=== PATIENT | female | born 1985 | race Caucasian/White ===

== ENCOUNTER 2017-08-01 00:29 | Inpatient (IN) ==
[2017-08-01] MEDS ORDERED: METHYLERGONOVINE 0.2 MG/ML INJECTION IM PRN (08:50)
[2017-08-01] MEDS ORDERED: D5LR 1,000 ML IV PRN (08:50)
[2017-08-01] MEDS ORDERED: CARBOPROST 250 MCG/ML INJECTION IM PRN (08:50)
[2017-08-01] MEDS ORDERED: LIDOCAINE 1% (10mg/ml) 2mL INJ PF SDV ID PRN (08:50)
[2017-08-01] MEDS ORDERED: MAG-AL + SIM ORAL LIQUID 30ml PO PRN ×2 (08:50→16:48)
[2017-08-01] MEDS ORDERED: OXYTOCIN DRIP 30 UNIT/500 ML ML IV PRN (08:50)
[2017-08-01] MEDS ORDERED: ACETAMINOPHEN 500 MG TABLET PO PRN ×2 (08:50→16:48)
[2017-08-01] MEDS ORDERED: CALCIUM CARBONATE Chewable 500mg TABLET PO PRN ×2 (08:50→16:48)
--- OUTSIDE RECORDS SUMMARY | 2017-08-01 08:52 | External Medical Summary | Continuity of Care Document ---
:1985 Author Organization [facility] Address [address] [place], [place] [id number] Phone Care Team Providers Name Role Phone Natalie Gonzalez MD Unavailable Unavailable Allergies, Adverse Reactions, Alerts Substance Reaction Severity Status No Known Drug Allergies Unknown Active Medications Medication Instructions Dosage Effective Dates Status Comments (start - stop) aspirin 81 mg take 1 tablet by oral 81 MG - Active tablet,delayed route every day release 28 mg-800 - Active mcg tablet vitamin E 100 unit - Active capsule Vitamin D2 50,000 take 1 capsule by 32339 UNITS - Active unit capsule oral route every week Problems Condition Effective Dates (start - stop) Clinical Status Encounter for suprvsn of normal - , third trimester 34 weeks gestation of - Encounter for suprvsn of normal - , first trimester 11 weeks gestation of - Encounter for suprvsn of normal - , second trimester 15 weeks gestation of - Encounter for suprvsn of normal - , second trimester 19 weeks gestation of - Encounter for suprvsn of normal - , second trimester 24 weeks gestation of - Encounter for suprvsn of normal - , second trimester 20 weeks gestation of - Encounter for suprvsn of normal - , third trimester Encounter For Screening For - Streptococcus B 36 weeks gestation of - Encounter for suprvsn of normal - , third trimester 28 weeks gestation of - Encounter for suprvsn of normal - , third trimester 31 weeks gestation of - Encounter for suprvsn of normal - , third trimester 30 weeks gestation of - Procedures Procedure Date OB Visit No Charge Results Test Name Date and Time Measure Units Reference Range Abnormal Flag Comments Unknown Advance Directives Directive Yes / No Effective Date File Name Unknown Encounters Encounter Practice Location Reason(s) Diagnoses Date Provider Care Team Description For Visit Members Kendrick Goins Encounter for Dec-1 [facility]wat Referring In Womens suprvsn of normal 2-201 Jake. 700 Provider: Health [place], , third 7 Medical Jake [address] [facility] R, 1522, r For [place], Screening For 120, Medical [place], Streptococcus B36 [facility] , weeks gestation BRENT [facility] 120, [place] of [id number] [place], tel: , [place]. [place], tel: [phone]. [id number] tel:[phone] Kendrick Goins Encounter for Nov-2 [facility] In Womens suprvsn of normal 8-201 Jake. 700 Health PA, , third 7 Medical PO [address] [email or web address] weeks Center 1522, gestation of [place], 120, [place], [place], [id number], [place], [place] [id number] tel: , [place]. tel: [phone] Kendrick Goins Encounter for Nov-0 [place] In Womens suprvsn of normal 7-201 Jake. 700 Health PA, , third 7 Medical PO Box [email or web address] weeks Center 1522, gestation of [place], 120, [place], [place], [id number], [place] [id number] tel: , [place]. tel: [phone] Kendrick Goins Encounter for Nov-0 [place] In Womens suprvsn of normal 1-201 Jake. 700 Health PA, , third 7 Medical PO Box [email or web address] weeks Center 1522, gestation of [place]em [place], 120, BRENT, [place], [id number], [place], [place] tel: , [place]. tel: [phone] Kendrick Goins Encounter for Oct-1 [place] In Womens suprvsn of normal 9-201 Jake. 700 Health PA, , third 7 Medical PO Box [email or web address] weeks Center 1522, gestation of [place], 120, [place], [place], [id number], [place] [id number] tel: , [place]. tel: [phone] Associates [place] Encounter for Sep-2 [place] In Womens suprvsn of normal 1-201 Jake. 700 Health PA, , second 7 Medical PO Box weeks Center 1522, gestation of [place], 120, [place], [place], [id number], [place] [id number] tel:+ , [place]. tel: [phone] Kendrick Goins Encounter for Aug-2 [place] In Womens suprvsn of normal 4-201 Jake. 700 Health PA, , second 7 Medical PO Box [email or web address] weeks Center 1522, gestation of [place], 120, [place], [place], [id number], [place], [place] [id number] tel: , . tel: [phone] Kendrick Goins Encounter for Aug-2 [place] In Womens Ultrasound suprvsn of normal 4-201 Jake. 700 Health PA, , second 7 Medical PO Box [email or web address] weeks Center 1522, gestation of [place], 120, [place], [place], [id number], [place], [place] [id number] tel: , . tel: [phone] Kendrick Goins Encounter for Isreal-2 [place] In Womens suprvsn of normal 7-201 Jake. 700 Health PA, , second 7 Medical PO Box [email or web address] weeks Center 1522, gestation of [place], 120, [place], [place], [id number], [place], [place] [id number] tel: , . tel: [phone] Kendrick Goins Encounter for Jose-2 [place] In Womens suprvsn of normal 9-201 Jake. 700 Health PA, , first 7 Medical PO Box [email or web address] weeks Center 1522, gestation of [place]u, 120, [place], [place], [id number], [place], [place] [id number] tel:3 , [place]. [id number] tel: [phone] Family History Family Member Diagnosis Age At Onset Maternal Grandmother Breast Cancer No family history of Venous Thrombosis No family history of Pulmonary Embolism Immunizations Vaccine Date Status Comments Tdap completed Source: New Immunization Record Influenza, injectable, completed Source: Other Provider quadrivalent, preservative free, 3 yrs or older Payers Payer name Insurance type Covered green party ID Authorization(s) [facility] [place] [id number] [facility] CI [id number] Social History Type Description Quantity Date Captured Alcohol Use Details No Caffeine Use Details Unknown Tobacco Use Status Unknown Smoking Status Never smoker Vital Signs Date / Height Weight BMI Pulse Blood Temperature Respiratory Body Head BMI Time: Rate Pressure Rate Surface Circumference percentile Area 158.80 33.1 lbs 9 mm[Hg] 11:38 kg/m AM eter (2) Chief Complaint And Reason For Visit Unknown Chief Complaint And Reason For Visit Reason For Referral Reason For Referral Unknown Plan Of Care Date Type Action Status Appointment Melissa Walsh BOOKED Appointment Melissa Walsh BOOKED Future Order: Radiology Order Complete OB Ultrasound > 14 Ordered Weeks ([id number]) Date Type Problem Goal Intervention Status Start Date Unknown. History Of Present Illness Encounter Date Complaint History Of Present Illness This patient has no known history of present illness Functional Status Encounter Date Functional Assessment Cognitive Assessment Unknown Medications Administered Medication Instructions Dosage Effective Dates (start - stop) Status Comments Drug Treatment Unknown Instructions Date Instruction Additional Information HIV and other routine tests risk factors identified by history anticipated course of care nutrition and weight gain counseling, special diet toxoplasmosis precautions (cats / raw meat) sexual activity exercise indications for ultrasound influenza vaccine environmental / work hazards travel use of any medications (including supplements, vitamins, herbs, OTC drugs) domestic violence seat belt use childbirth classes / hospital facilities hospital registration genetic testing new ob handbook Zika virus assessment & precautions
--- OUTSIDE RECORDS SUMMARY | 2017-08-01 08:52 | External Medical Summary | Continuity of Care Document ---
:1985 Author Organization [facility] Address [address] [place], [place] [id number] Phone Care Team Providers Name Role Phone Natalie Gonzalez MD Unavailable Unavailable Allergies, Adverse Reactions, Alerts Substance Reaction Severity Status No Known Drug Allergies Unknown Active Medications Medication Instructions Dosage Effective Dates Status Comments (start - stop) 28 mg-800 - Active mcg tablet vitamin E 100 unit - Active capsule Vitamin D2 50,000 take 1 capsule by 32033 UNITS - Active unit capsule oral route [...] Description For Visit Members Kendrick Goins Encounter [facility] In Womens for Jake. 700 Health PA, of normal Medical [address], , Center [place], third Saleem 120, [id number], [email or web address] [place], [place] weeks [place], tel:[phone] gestation [id number], [address] of [place]. tel:[phone] Kendrick Goins Encounter [facility] In Womens for Jake. 700 Health PA, of normal Medical [address], , Center [place], third Saleem 120, [id number], [email or web address] [place], [place] weeks [place], tel:[phone] gestation [id number], [address] of [place]. tel:[phone] Kendrick Goins Encounter [facility] In Womens for Jake. 700 Health PA, of normal Medical [address], , Center [place], third [place] 120, [id number], [email or web address] [place], [place] weeks [place], tel:[phone] gestation [id number], [address] of [place]. tel:[phone] Kendrick Goins Encounter [facility] In Womens for Jake. 700 Health PA, of normal Medical [address], , Center [place], second [place] 120, [id number], [email or web address] [place], [place] weeks [place], tel:[phone] gestation [id number], [address] of [place]. tel:[phone] Kendrick Goins Encounter [place] In [facility] for [facility] [place]. 700 Health PA, of normal Medical [address], , Center [place], second [place] 120, [id number], [email or web address] [place], [place] weeks [place], tel:[phone] gestation [id number], [address] of [place]. tel:[phone] Kendrick Goins Encounter [facility] In Womens Ultrasound for Jake. 700 Health PA, of normal Medical [address], , Center [place], second [place] 120, [id number], [email or web address] [place], [place] weeks [place], tel:[phone] gestation [id number], [address] of [place]. tel:[phone] Kendrick Goins Encounter [facility] In Womens for Jake. 700 Health PA, of normal Medical [address], , Center [place], second [place] 120, [id number], [email or web address] [place], [place] weeks [place], tel:[phone] gestation [id number], [address] of [place]. tel:[phone] Kendrick Goins Encounter [facility] In Womens for Jake. [address] [place] [address] PA, of normal Medical [address], , Center [place], first [place]em 120, [id number], [email or web address] [place], [place] weeks [place], tel:[phone] gestation [id number], [address] of [place]. tel:[phone] Family History Family Member Diagnosis Age At Onset Maternal Grandmother Breast Cancer No family history of Venous Thrombosis No family history of Pulmonary Embolism Immunizations Vaccine Date Status Comments Unknown Payers Payer name Insurance type Covered alliance party ID Authorization(s) [facility] [id number] Social History Type Description Quantity Date Captured Alcohol Use Details No Caffeine Use Details Unknown Tobacco Use Status Unknown Smoking Status Never smoker Vital Signs Date / Height Weight BMI Pulse Blood Temperature Respiratory Body Head BMI Time: Rate Pressure Rate Surface Circumference percentile Area 158.80 33.1 lbs 9 mm[Hg] 9:21 kg/m AM eter (2) Chief Complaint And Reason For Visit Unknown Chief Complaint And Reason For Visit Reason For Referral Reason For Referral Unknown Plan Of Care Date Type Action Status Appointment Melissa Walsh BOOKED Future Order: Radiology Order Complete OB Ultrasound > 14 Ordered Weeks ([id number]) Date Type Problem Goal Intervention Status Start [...]
--- OUTSIDE RECORDS SUMMARY | 2017-08-01 08:52 | External Medical Summary | Continuity of Care Document ---
:1987 Author Organization [facility] Address [address] [place], [place] [id number] Phone Care Team Providers Name Role Phone Natalie Gonzalez MD Unavailable Unavailable Allergies, Adverse Reactions, Alerts Substance Reaction Severity Status No Known Drug Allergies Unknown Active Medications Medication Instructions Dosage Effective Dates Status Comments (start - stop) 28 mg-800 - Active mcg tablet vitamin E 100 unit - Active capsule Vitamin D2 50,000 take 1 capsule by 91797 UNITS - Active unit capsule oral route [...] weeks gestation of - Procedures Procedure Date Unknown Results Test Name Date and Time Measure [...] Center [place], third [place] 120, [id number], [email or web address] [place], [place] weeks [place], tel:[phone] gestation [id number], [address] of [place]. tel:[phone] Kendrick Goins [facility] In Womens -2016 Jake. 700 Health PA, Medical [address], [place], [place] 120, [id number], [place], [place], tel:[phone] [id number], [address] [place]. tel:[phone] Kendrick Goins Encounter [facility] In Womens for Jake. 700 Health PA, of normal Medical [address], , [place], third [place] 120, [id number], [email or web address] [place], [place] weeks [place], tel:[phone] gestation [id number], [address] of [place]. tel:[phone] Kendrick Goins Encounter [facility] In Womens for Jake. 700 Health PA, of normal Medical [address], , Center [place], third [place] 120, [id number], [place], [place] weeks [place], tel:[phone] gestation [id number], [address] of [place]. tel:[phone] Kendrick Goins Encounter [facility] In Womens for Jake. 700 Health PA, of normal Medical [address], , Center [place], second [place] 120, [id number], [email or web address] [place], [place] weeks [place], tel:[phone] gestation [id number], [address] of [place]. tel:[phone] Kendrick Goins Encounter [facility] In Womens for [facility] Jake. 700 Health PA, of normal Medical [address], , Center [place], second [place] 120, [id number], [email or web address] [place], [place] weeks [place], tel:[phone] gestation [id number], [address] of [place]. tel:[phone] Kendrick Goins Encounter [facility] In Womens Ultrasound for Jake. 700 Health PA, of normal Medical [address], , Center [place], second [place] 120, [id number], [email or web address] [place], [place] weeks [place], tel:[phone] gestation [id number], [address] of [place]. tel:[phone] Kendrick Goins Encounter [facility] In Womens for Jake. 700 Health PA, of normal Medical [address], , Center [place], second [place] 120, [id number], [email or web address] [place], [place] weeks [place], tel:[phone] gestation [id number], [address] of [place]. tel:[phone] Kendrick Goins Encounter [facility] In Womens for Jake. 700 Health PA, of normal Medical [address], , Center [place], first [place] 120, [id number], [email or web address] [place], [place] weeks [place], tel:[phone] gestation [id number], [address] of [place]. tel:[phone] Family History Family Member Diagnosis Age At Onset Maternal Grandmother Breast Cancer No family history of Venous Thrombosis No family history of Pulmonary Embolism Immunizations Vaccine Date Status Comments Unknown Payers Payer name Insurance type Covered alliance party ID Authorization(s) [facility] CI [id number] Social History Type Description Quantity Date Captured Unknown Vital Signs Date / Height Weight BMI Pulse Blood Temperature Respiratory Body Head BMI Time: Rate Pressure Rate Surface Circumference percentile Area Unknown Chief Complaint And Reason For Visit Unknown Chief Complaint And Reason For Visit Reason For Referral Reason For Referral Unknown Plan Of Care Date Type Action Status Appointment Melissa Walsh BOOKED Future Order: Radiology Order Complete OB Ultrasound > 14 Ordered Weeks ([id number]) Date Type Problem Goal Intervention Status Start [...]
--- OUTSIDE RECORDS SUMMARY | 2017-08-01 08:52 | External Medical Summary | Continuity of Care Document ---
:1987 Author Organization [facility] Address [address] [place], [place] [id number] Phone Care Team Providers Name Role Phone Natalie Gonzalez MD Unavailable Unavailable Allergies, Adverse Reactions, Alerts Substance Reaction Severity Status Substance Type Unknown Medications Medication Instructions Dosage Effective Dates Status Comments (start - stop) 28 mg-800 - Active mcg tablet vitamin E 100 unit - Active capsule Vitamin D2 50,000 take 1 capsule by 59942 UNITS - Active unit capsule oral route every week Problems Condition Effective Dates (start - stop) Clinical Status Encounter for suprvsn of normal - , second trimester 15 weeks gestation of - Encounter for suprvsn of normal - , first trimester 11 weeks gestation of - Procedures Procedure Date OB Visit No Charge Results Test Name Date and Time Measure Units Reference Range Abnormal Flag Comments Unknown Advance Directives Directive Yes / No Effective Date File Name Unknown Encounters Encounter Practice Location Reason(s) Diagnoses Date Provider Care Team Description For Visit Members Kendrick In [place] Encounter [facility] for Jake. 700 PA, PO Box of normal Medical 152, , Center [place], second [place]em 120, [id number], [place], tel:[phone] weeks [place], 6790 gestation of [id number], [place]. tel:[phone] Kendrick Goins Encounter [facility] for vs Jake. 700 PA, PO Box of normal Medical 1522, , Center [place], first [place] 120, [id number], [place] [email or web address] [place], tel:[phone] weeks BRENT, 6790 gestation of [id number], [place]. tel:[phone] Family History Family Member Diagnosis Age At Onset Maternal Grandmother Breast Cancer No family history of Venous Thrombosis No family history of Pulmonary Embolism Immunizations Vaccine Date Status Comments Unknown Payers Payer name Insurance type Covered constitution party ID Authorization(s) [facility] [id number] Social History Type Description Quantity Date Captured Alcohol Use Details No Caffeine Use Details Unknown Tobacco Use Status Unknown Smoking Status Never smoker Vital Signs Date / Height Weight BMI Pulse Blood Temperature Respiratory Body Head BMI Time: Rate Pressure Rate Surface Circumference percentile Area 139.80 29.2 110/ lbs 1 mm[Hg] 10:22 kg/m AM eter (2) Chief Complaint And Reason For Visit Unknown Chief Complaint And Reason For Visit Reason For Referral Reason For Referral Unknown Plan Of Care Date Type Action Status Appointment Melissa Walsh BOOKED Appointment Melissa Walsh BOOKED Date Type Problem Goal Intervention Status Start [...]
--- OUTSIDE RECORDS SUMMARY | 2017-08-01 08:52 | External Medical Summary | Continuity of Care Document ---
:1987 Author Organization [facility] Address [address] [place], [place] [id number] Phone Care Team Providers Name Role Phone Natalie Gonzalez MD Unavailable Unavailable Allergies, Adverse Reactions, Alerts Substance Reaction Severity Status No Known Drug Allergies Unknown Active Medications Medication Instructions Dosage Effective Dates Status Comments (start - stop) 28 mg-800 - Active mcg tablet vitamin E 100 unit - Active capsule Vitamin D2 50,000 take 1 capsule by 64895 UNITS - Active unit capsule oral route [...] Procedures Procedure Date OB Visit No Charge - [facility] Hemoglobin count, colorimetric Hematocrit blood count Glucose test Venpnctr fngr/heel/ear stick routne Results Test Name Date and Time Measure Units Reference Range Abnormal Flag Comments Panel Description: Glucose [Mass/volume] in Serum or Plasma --1 hour post 50 g glucose PO GLUCOSE, GESTATIONAL 86 mg/dL <140 N Test performed at [facility] SCREEN (50G)-140 10:22:00 DIAGNOSTICS [id number] [place] [id number]: YANNI GANNON DO,MPH Panel Description: HEMOGLOBIN + HEMATOCRIT HEMOGLOBIN 10:22:00 10.7 g/dL 11.7-15.5 L HEMATOCRIT 10:22:00 31.4 % 35.0-45.0 L REPORT COMMENT:FASTING :NOTest performed at [facility] [id number] [place] [id number]: YANNI GANNON DO,MPH Advance Directives Directive Yes / No Effective Date File Name Unknown Encounters Encounter Practice Location Reason(s) Diagnoses Date Provider Care Team Description For Visit Members Kendrick Goins Encounter [facility] for Jake. [employer] PA, of normal Medical [address], , [place], third [place]em 120, [id number], [email or web address] [place], [place] weeks [place], tel:[phone] gestation [id number], [address] of [place]. tel:[phone] Kendrick Goins Encounter [facility] In Womens for Jake. [employer] PA, of normal Medical [address], , Center [place], third [place] 120, [id number], [email or web address] [place], [place] weeks [place], tel:[phone] gestation [id number], [address] of [place]. tel:[phone] Kendrick Goins Encounter [facility] In Womens for [facility] Jake. [facility] PA, of normal Medical [address], , Center [place], third [place] 120, [id number], [email or web address] [place], [place] weeks [place], tel:[phone] gestation [id number], [address] of [place]. tel:[phone] Kendrick Goins Encounter Mar- [facility] In Womens for Jake. 700 Health PA, of normal Medical [address], , Center [place], second [place] 120, [id number], [email or web address] [place], [place] weeks [place], tel:[phone] gestation [id number], [address] of [place]. tel:[phone] Kendrick Goins Encounter [facility] In Womens for Jake. 700 Health PA, of normal Medical [address], , Center [place], second [place] 120, [id number], [email or web address] [place], [place] weeks [place], tel:[phone] gestation [id number], [address] of [place]. tel:[phone] Kendrick Goins Encounter [facility] In Womens Ultrasound for Jake. 700 Health PA, of normal Medical [address], , Center [place], second [place] 120, [id number], [email or web address] [place], [place] weeks [place], tel:[phone] gestation [id number], [address] of [place]. tel:[phone] Kendrick Goins Encounter [facility] In Womens for Jake. 700 Health PA, of normal Medical [address], , Center [place], second [place] 120, [id number], [email or web address] [place], [place] weeks [place], tel:[phone] gestation [id number], [address] of [place]. tel:[phone] Kendrick Goins Encounter [facility] In Womens for Jake. 700 Health PA, of normal Medical [address], , Center [place], first [place] 120, [id number], [email or web address] [place], [place] weeks [place], tel:[phone] gestation [id number], [address] of [place]. tel:[phone] Family History Family Member Diagnosis Age At Onset Maternal Grandmother Breast Cancer No family history of Venous Thrombosis No family history of Pulmonary Embolism Immunizations Vaccine Date Status Comments Unknown Payers Payer name Insurance type Covered green party ID Authorization(s) [facility] CI [id number] Social History Type Description Quantity Date Captured Alcohol Use Details No Caffeine Use Details Unknown Tobacco Use Status Unknown Smoking Status Never smoker Vital Signs Date / Height Weight BMI Pulse Blood Temperature Respiratory Body Head BMI Time: Rate Pressure Rate Surface Circumference percentile Area 156.70 32.7 100/62 -2017 lbs 5 mm[Hg] 9:29 kg/m AM eter (2) Chief Complaint And Reason For Visit Unknown Chief Complaint And Reason For Visit Reason For Referral Reason For Referral Unknown Plan Of Care Date Type Action Status Appointment Melissa Walsh BOOKED Future Order: Radiology Order Complete OB Ultrasound > 14 Ordered Weeks ([id number]) Date Type Problem Goal Intervention Status Start [...]
--- OUTSIDE RECORDS SUMMARY | 2017-08-01 08:52 | External Medical Summary | Continuity of Care Document ---
:1985 Author Organization [facility] Address [address] [place], [place] [id number] Phone Care Team Providers Name Role Phone Natalie Gonzalez MD Unavailable Unavailable Allergies, Adverse Reactions, Alerts Substance Reaction Severity Status Substance Type Unknown Medications Medication Instructions Dosage Effective Dates Status Comments (start - stop) 28 mg-800 - Active mcg tablet vitamin E 100 unit - Active capsule Vitamin D2 50,000 take 1 capsule by 12963 UNITS - Active unit capsule oral route every week Problems Condition Effective Dates (start - stop) Clinical Status Encounter for suprvsn of normal - , first trimester 11 weeks gestation of - Procedures Procedure Date Initial OB Visit No Charge - CLIENT SERVICE CONSULTANT Infct antign, chlamydia trac, ampl Neisseria Gonorrhoeae, Amplification OB Panel With An HIV Urine Culture Venpnctr fngr/heel/ear stick routne Results Test Name Date and Time Measure Units Reference Range Abnormal Flag Comments Panel Description: CHLAMYDIA/N. GONORRHOEAE RNA, TMA CHLAMYDIA NOT DETECTED NOT DETECTED N TRACHOMATIS RNA, 16:23:00 TMA NEISSERIA NOT DETECTED NOT DETECTED N GONORRHOEAE RNA, 16:23:00 TMA [id number] SEE NOTE This test was 16:23:00 performed using the APTIMA COMBO2 Assay([employer] The analytical performance characteristics of this assay, when used to test SurePath specimens havebeen determined by [employer]. REPORT COMMENT:FASTING:UNKNO WNTest performed at [facility] [place] [id number] [place] [address]Sjmktpoz: YANNI GANNON DO,MPH Panel Description: OBSTETRIC PANEL WHITE BLOOD CELL 6.8 Thousand/uL 3.8-10.8 N COUNT 16:28:00 RED BLOOD CELL 3.87 Million/uL 3.80-5.10 N COUNT 16:28:00 HEMOGLOBIN 12.5 g/dL 11.7-15.5 N 16:28:00 HEMATOCRIT 36.9 % 35.0-45.0 N 16:28:00 MCV 95.3 fL 80.0-100.0 N 16:28:00 MCH 32.3 pg 27.0-33.0 N 16:28:00 MCHC 33.9 g/dL 32.0-36.0 N 16:28:00 RDW 12.8 % 11.0-15.0 N 16:28:00 PLATELET COUNT 197 Thousand/uL 140-400 N 16:28:00 MPV 10.7 fL 7.5-12.5 N 16:28:00 ABSOLUTE 4685 cells/uL 3064-3401 N NEUTROPHILS 16:28:00 ABSOLUTE 1707 cells/uL 850-3900 N LYMPHOCYTES 16:28:00 ABSOLUTE 367 cells/uL 200-950 N MONOCYTES 16:28:00 ABSOLUTE 20 cells/uL 15-500 N EOSINOPHILS 16:28:00 ABSOLUTE 20 cells/uL 0-200 N BASOPHILS 16:28:00 NEUTROPHILS 68.9 % N 16:28:00 LYMPHOCYTES 25.1 % N 16:28:00 MONOCYTES 5.4 % N 16:28:00 EOSINOPHILS 0.3 % N 16:28:00 BASOPHILS 0.3 % N 16:28:00 ANTIBODY SCREEN, NO ANTIBODIES N RBC W/REFL ID, 16:28:00 DETECTED Reference range TITER AND AG No antibodies detected This assay is a screening test for the detection of red blood cell antibodies. The test is not to be used for pretransfusion screening or for the medical management of an alloimmunized . ABO GROUP A 16:28:00 RH TYPE RH(D) 16:28:00 POSITIVE RPR (DX) W/REFL NON-REACTIVE NON-REACTIV N TITER AND 16:28:00 E CONFIRMATORY TESTING HEPATITIS B NON-REACTIVE NON-REACTIV N SURFACE ANTIGEN 16:28:00 E RUBELLA ANTIBODY 12.50 index N Index (IGG) 16:28:00 Interpretation ----- <0.90 Not consistent with Immunity 0.90-0.99 Equivocal > or=1.00 Consistent with Immunity The presence of rubella IgG antibody suggests immunization or past or current infection withrubella virus.Test performed at [facility] [place] [id number] [facility] BankBRON[facility]ITAL[facility] [place] [address]Htilypa r: YANNI GANNON DO,MPH Panel Description: HIV 1/2 ANTIGEN/ANTIBODY,FOURTH GENERATION W/RFL HIV NON-REACTIVE NON-REACTIVE N HIV-1 antigen and HIV-1/HIV- 2 antibodies were AG/AB, 16:28:00 notdetected. There is no laboratory evidence of 4TH GEN HIVinfection. PLEASE NOTE: This information has been disclosed toyou from records whose confidentiality may beprotected by state law. If your state requires suchprotection, then the state law prohibits you frommaking any further disclosure of the informationwithout the specific written consent of the personto whom it pertains, or as otherwise permitted by law.A general authorization for the release of medical orother information is NOT sufficient for this purpose. For additional information please refer tohttp://education.[employer]/faq/XNK626(This link is being provided for informational/educational purposes only.) The performance of this assay has not been clinicallyvalidated in patients less than 2 years old. REPORT COMMENT:FASTING:NOTest performed at [facility] [id number] [facility] [place] [address]Itzxfrwd: YANNI GANNON DO,MPH Panel Description: Bacteria identified in Urine by Culture CULTURE, URINE, 16:30:00 SEE NOTE CULTURE, URINE, ROUTINE ROUTINE MICRO NUMBER: [id number] TEST STATUS: FINAL SPECIMEN SOURCE: URINE, CLEAN CATCH SPECIMEN QUALITY: ADEQUATE RESULT: No GrowthREPORT COMMENT:RFASTING:UNKNOWNTest performed at [facility] [place] [id number] [place] [address]Fkcnkohi: YANNI GANNON DO,MPH Advance Directives Directive Yes / No Effective Date File Name Unknown Encounters Encounter Practice Location Reason(s) Diagnoses Date Provider Care Team Description For Visit Members [facility] Encounter [facility] for suprvs Jake. 700 [place], [address] of normal Medical 1522, , Center [place], first [place] 120, [id number], [place] [email or web address] [place], tel:[phone] weeks [place], 6790 gestation of [id number], [place]. tel:[phone] Family History Family Member Diagnosis Age At Onset Maternal Grandmother Breast Cancer No family history of Venous Thrombosis No family history of Pulmonary Embolism Immunizations Vaccine Date Status Comments Unknown Payers Payer name Insurance type Covered democrat ID Authorization(s) [facility] CI [id number] Social History Type Description Quantity Date Captured Alcohol Use Details No Caffeine Use Details Unknown Tobacco Use Status Never smoked tobacco Smoking Status Never smoker Non-Smoking Tobacco Use : No Details Available : No Details Available Details Vital Signs Date / Height Weight BMI Pulse Blood Temperature Respiratory Body Head BMI Time: Rate Pressure Rate Surface Circumference percentile Area 138.00 28.8 lbs 4 mm[Hg] 3:36 kg/m PM eter (2) Chief Complaint And Reason For Visit Unknown Chief Complaint And Reason For Visit Reason For Referral Reason For Referral Unknown Plan Of Care Date Type Action Status Appointment Melissa Walsh BOOKED Future Order: Lab Order Pap Smear With HPV Reflex If ASCUS Ordered ([id number]) Date Type Problem Goal Intervention Status Start [...]
--- OUTSIDE RECORDS SUMMARY | 2017-08-01 08:53 | External Medical Summary | Continuity of Care Document ---
:1985 Author Organization [email or web address] Address [address] [place], [place] [address] Phone Care Team Providers Name Role Phone Natalie Gonzalez MD Unavailable Unavailable Allergies, Adverse Reactions, Alerts Substance Reaction Severity Status No Known Drug Allergies Unknown Active Medications Medication Instructions Dosage Effective Dates Status Comments (start - stop) 28 mg-800 - Active mcg tablet vitamin E 100 unit - Active capsule Vitamin D2 50,000 [place] 1 [place] 8[address]22 UNITS - Active unit capsule oral route every week Problems Condition Effective Dates (start - stop) Clinical Status Encounter for suprvsn of normal - , first trimester 11 weeks gestation of - Matern care for oth or susp poor fetl - grth, third tri, unsp 37 weeks gestation of - Encounter for suprvsn [...] suprvsn of normal - , third trimester 37 weeks gestation of - Encounter for suprvsn of normal - , third trimester Encounter For Screening For - Streptococcus B 36 weeks gestation of - Encounter for suprvsn of normal - , third trimester 28 weeks gestation of - Encounter for suprvsn of normal - , third trimester 31 weeks gestation of - Encounter for suprvsn of normal - , third trimester 38 weeks gestation of - Encounter for suprvsn [...] For Visit Members Kendrick Goins Encounter for Dec-2 [place] In Womens suprvsn of normal 8-201 [place]. 700 Kemar LEE, , third 7 Medical [address] [email or web address] weeks Center 1522, gestation of [place], 120, [place], [place], [id number], [place] [id number] tel:[phone] , [place]. tel: [phone] Kendrick Goins Encounter for Dec-2 [place] In Womens suprvsn of normal 1-201 [place]. 700 Kemar LEE, , third 7 Medical PO Box [email or web address] weeks Center 1522, gestation of [place] Cantu, 120, [place], [place], [id number], [place], [place] [id number] tel:+ , [place]. tel: [phone] Kendrick Goins Matern care for Dec-2 [place] In Womens Ultrasound oth or susp poor 1-201 [place]. 700 Kemar LEE, fetl grth, third 7 Medical PO Box tri, [email or web address] weeks Center 1522, gestation of [place]u, 120, [place], [place], [id number], [place], [place] [id number] tel:[phone] , [place]. tel:[phone] Kendrick Goins Encounter for Dec-1 Sarwat Referring In Womens suprvsn of normal 2-201 [place]. 700 Provider: Kemar LEE, , third 7 Medical Jake PO Box trimesterEncounte Center Sarwat R, 1522, r For Saleem Cantu, Screening For 120, Medical [place], Streptococcus B36 Goins, [place] , weeks gestation Saleem [place] 120, [place] of [id number] [place], tel: , [place]. [place], tel: [phone]. [id number] tel:[phone] Kendrick Goins Dec-0 [place] In Womens 7-201 Jake. 700 Health [place], 7 Medical PO Box Center 1522, [place], 120, [place], [place], [id number], [place], [place] [id number] tel: , [place]. tel: [phone] Kendrick Goins Encounter for Nov-2 [place] In Womens suprvsn of normal 8-201 Jake. 700 Health [place], , third 7 Medical PO Box [email or web address] weeks Center 1522, gestation of Saleem Cantu, 120, [place], [place], [id number], [place], [place] [id number] tel: , [place]. tel: [phone] Kendrick Goins Encounter for Nov-0 [place] In Womens suprvsn of normal 7-201 Jake. 700 Health [place], , third 7 Medical PO Box [email or web address] weeks Center 1522, gestation of Saleem Cantu, 120, [place], [place], [id number], [place], [place] [id number] tel: , [place]. tel: [phone] Kendrick Goins Encounter for Nov-0 [place] In Womens suprvsn of normal 1-201 Jake. 700 Health [place], , third 7 Medical PO Box [email or web address] weeks Center 1522, gestation of Saleem Cantu, 120, [place], [place], [id number], [place] [id number] tel: , [place]. tel: [phone] Kendrick Goins Encounter for Oct-1 [place] In Womens suprvsn of normal 9-201 Jake. 700 Health [place], , third 7 Medical PO Box [email or web address] weeks Center 1522, gestation of [place]em Cantu, 120, [place], [place], [id number], [place], [place] [id number] tel: , . tel: [phone] Kendrick Goins Encounter for Sep-2 [place] In Womens suprvsn of normal 1-201 Jake. 700 Health [place], , second 7 Medical PO Box [email or web address] weeks Center 1522, gestation of [place]em Cantu, 120, [place], [place], [id number], [place], [place] [id number] tel: , [place]. tel: [phone] Kendrick Goins Encounter for Aug-2 [place] In Womens suprvsn of normal 4-201 Jake. 700 Health [place], , second 7 Medical PO Box [email or web address] weeks Center 1522, gestation of Saleem Cantu, 120, [place], [place], [id number], [place], [place] [id number] tel: , . tel: [phone] Kendrick Goins Encounter for Aug-2 [place] In Womens Ultrasound suprvsn of normal 4-201 Jake. 700 Health [place], , second 7 Medical PO Box [email or web address] weeks Center 1522, gestation of [place]em Cantu, 120, [place], [place], , [place], [place] [id number] tel: , . tel: [phone] Kendrick Goins Encounter for Isreal-2 [place] In Womens suprvsn of normal 7-201 Jake. 700 Health [place], , second 7 Medical PO Box [email or web address] weeks Center 1522, gestation of [place]em Cantu, 120, [place], [place], , [place], [place] [id number] tel: , . tel: [phone] Kendrick Goins Encounter for Jose-2 [place] In Womens suprvsn of normal 9-201 Jake. 700 Health [place], , first 7 Medical PO Box [email or web address] weeks Center 1522, gestation of [place]em Cantu, 120, [place], [place], [id number], [place], [place] [id number] tel: , . tel: [phone] Family History Family Member Diagnosis Age At Onset Maternal Grandmother Breast Cancer No family history of Venous Thrombosis No family history of Pulmonary Embolism Immunizations Vaccine Date Status Comments Tdap completed Source: New Immunization Record Influenza, injectable, completed Source: Other Provider quadrivalent, preservative free, 3 yrs or older Payers Payer name Insurance type Covered democrat ID Authorization(s) [facility] CI [id number] [facility] CI [id number] Social History Type Description Quantity Date Captured Unknown Vital Signs Date / Height Weight BMI Pulse Blood Temperature Respiratory Body Head BMI Time: Rate Pressure Rate Surface Circumference percentile Area Unknown Chief Complaint And Reason For Visit Unknown Chief Complaint And Reason For Visit Reason For Referral Reason For Referral Unknown Plan Of Care Date Type Action Status Future Order: Radiology Order Ultrasound OB Follow-up ([id number]) Ordered Future Order: Radiology Order Complete OB Ultrasound > 14 Ordered Weeks ([id number]) Date Type Problem Goal Intervention Status Start [...]
--- OUTSIDE RECORDS SUMMARY | 2017-08-01 08:53 | External Medical Summary | Continuity of Care Document ---
:1987 Author Organization [facility] Address [address] [place], [place] [id number] Phone Care Team Providers Name Role Phone Natalie Gonzalez MD Unavailable Unavailable Allergies, Adverse Reactions, Alerts Substance Reaction Severity Status Substance Type Unknown Medications Medication Instructions Dosage Effective Dates Status Comments (start - stop) 28 mg-800 - Active mcg tablet vitamin E 100 unit - Active capsule Vitamin D2 50,000 take 1 [place] 44401 UNITS - Active unit capsule oral route every week Problems Condition Effective Dates (start - stop) Clinical Status Encounter for suprvsn of normal - , first trimester 11 weeks gestation of - Encounter for suprvsn of normal - , second trimester 15 weeks gestation of - Procedures Procedure Date Unknown Results Test Name Date and Time Measure Units Reference Range Abnormal Flag Comments Unknown Advance Directives Directive Yes / No Effective Date File Name Unknown Encounters Encounter Practice Location Reason(s) Diagnoses Date Provider Care Team Description For Visit Members [facility] Encounter [facility] for suprvsn -2016 Jake. 700 [place], PO Box of normal Medical 1522, , Center [place], second [place] 120, [id number], [place] [id number] [place], tel:[phone] weeks [place], 6790 gestation of [id number], [place]. tel:[phone] [facility] -2016 700 [place], PO Box Medical 1522, Center [place], [place] 120, [id number], [place], tel:[phone] [place], 6790 [id number], [place]. tel:[phone] [facility] Encounter [facility] for vs -2016 Jake. 700 [place], PO Box of normal Medical 1522, , Center [place], first [place] 120, [id number], [place] [email or web address] [place], tel:[phone] weeks [place], 6790 gestation of [id number], [place]. tel:[phone] Family History Family Member Diagnosis Age At Onset Maternal Grandmother Breast Cancer No family history of Venous Thrombosis No family history of Pulmonary Embolism Immunizations Vaccine Date Status Comments Unknown Payers Payer name Insurance type Covered libertarian ID Authorization(s) [facility] CI [id number] Social History Type Description Quantity Date Captured [...]
--- OUTSIDE RECORDS SUMMARY | 2017-08-01 08:53 | External Medical Summary | Continuity of Care Document ---
:1985 Author Organization [facility] Address [address] [place], [place] [id number] Phone Care Team Providers Name Role Phone Nataile Gonzalez MD Unavailable Unavailable Allergies, Adverse Reactions, Alerts Substance Reaction Severity Status No Known Drug Allergies Unknown Active Medications Medication Instructions Dosage Effective Dates Status Comments (start - stop) 28 mg-800 - Active mcg tablet vitamin E 100 unit - Active capsule Vitamin D2 50,000 take 1 capsule by 35056 UNITS - Active unit capsule oral route [...] weeks gestation of - Procedures Procedure Date Immuniz admnin, 1 vac, sngl/combo 19 Yrs + TDAP VACCINE >7 IM OB Visit No Charge Cult, pathgnc orgnsm, screen Results Test Name Date and Time Measure Units Reference Range Abnormal Flag Comments Panel Description: STREPTOCOCCUS, GROUP B CULTURE STREPTOCOCCUS, GROUP B 09:21:00 SEE NOTE STREPTOCOCCUS, GROUP B CULTURE CULTURE MICRO NUMBER: [id number] TEST STATUS: FINAL SPECIMEN SOURCE: VAGINAL/ANORECTAL SPECIMEN QUALITY: ADEQUATE RESULT: No group B Streptococcus isolatedTest performed at [facility] [id number] [place] [id number]: YANNI GANNON DO,MPH Advance Directives Directive Yes / No Effective Date File Name Unknown Encounters Encounter Practice Location Reason(s) Diagnoses Date Provider Care Team Description For Visit Members Kendrick Goins Encounter for Dec-2 [place] In Womens suprvsn of normal 8-[address], , third 7 Medical PO Box [email or web address] weeks Center 1522, gestation of [place]u, 120, [place], [place], [id number], [place], [place] [id number] tel: , [place]. [address] tel: [phone] Kendrick Goins Encounter for Dec-2 [place] In Womens suprvsn of normal 1-[address], , third 7 Medical PO Box [email or web address] weeks Center 1522, gestation of [place] Cantu, 120, [place], [place], [id number], [place], [place] [id number] tel:[phone] , [place]. tel: [phone] Kendrick Goins Matern care for Dec-2 Sarwat In Womens Ultrasound oth or susp poor 1-201 Jake. 700 Health [place], fetl grth, third 7 Medical PO Box tri, [email or web address] weeks Center 1522, gestation of [place]em Cantu, 120, [place], [place], [id number], [place], [place] [id number] tel: , [place]. tel: [phone] Kendrick Goins Encounter for Dec-1 Sarwat Referring In Womens suprvsn of normal 2-201 [place]. 700 Provider: Health [place], , third 7 Medical Jake PO Box trimesterEncounte Center Asrwat R, 1522, r For Saleem Cantu, Screening For 120, Medical [place], Streptococcus B36 Goins, [place] , weeks gestation BRENT [place] 120, [place] of [id number] [place], tel: , [place]. [place], tel:[phone]. [id number] tel:[phone] Kendrick Goins Encounter for Nov-2 [place] In Womens suprvsn of normal 8-201 Jake. 700 Health [place], , third 7 Medical PO Box [email or web address] weeks Center 1522, gestation of [place]em Cantu, 120, [place], [place], [id number], [place], [place] [id number] tel: , [place]. tel: [phone] Kendrick Goins Encounter for Nov-0 [place] In Womens suprvsn of normal 7-201 Jake. 700 Health [place], , third 7 Medical PO Box [email or web address] weeks Center 1522, gestation of Slaeem Cantu, 120, [place], [id number], [place], [place] [id number] tel: , [place]. tel: [phone] Kendrick Goins Encounter for Nov-0 [place] In Womens suprvsn of normal 1-201 Jake. 700 Health [place], , third 7 Medical PO Box [email or web address] weeks Center 1522, gestation of Saleem Cantu, 120, [place], , [place], [place] [id number] tel: , [place]. tel: [phone] Kendrick Goins Encounter for Oct-1 [place] In Womens suprvsn of normal 9-201 Jake. 700 Health [place], , third 7 Medical PO Box [email or web address] weeks Center 1522, gestation of Saleem Cantu, 120, [place], [place], [id number], [place], [place] [id number] tel: , [place]. tel: [phone] Kendrick Goins Encounter for Sep-2 [place] In Womens suprvsn of normal 1-201 Jake. 700 Health [place], , second 7 Medical PO Box [email or web address] weeks Center 1522, gestation of [place]em Cantu, 120, [place], [place], [id number], [place], [place] [id number] tel: , [place]. tel: [phone] Kendrick Goins Encounter for Aug-2 [place] In Womens suprvsn of normal 4-201 Jake. 700 Health [place], , second 7 Medical PO Box [email or web address] weeks Center 1522, gestation of Saleem Cantu, 120, [place], [place], [id number], [place], [place] [id number] tel: , [place]. tel: [phone] Kendrick Goins Encounter for Aug-2 [place] In Womens Ultrasound suprvsn of normal 4-201 Jake. 700 Health [place], , second 7 Medical PO Box [email or web address] weeks Center 1522, gestation of [place]em Cantu, 120, [place], [place], [id number], [place], [place] [id number] tel: , [place]. tel: [phone] Kendrick Goins Encounter for Isreal-2 [place] In Womens suprvsn of normal 7-201 Jake. 700 Health [place], , second 7 Medical PO Box [email or web address] weeks Center 1522, gestation of [place]em Cantu, 120, [place], [place], [id number], [place], [place] [id number] tel: , [place]. tel: [phone] Kendrick Goins Encounter for Jose-2 [place] In Womens suprvsn of normal 9-201 Jake. 700 Health [place], , first 7 Medical PO Box [email or web address] weeks Center 1522, gestation of [place]em Cantu, 120, [place], [place], [id number], [place], [place] [id number] tel:[phone] , [place]. [id number] tel: [phone] Family History Family Member Diagnosis Age At Onset Maternal Grandmother Breast Cancer No family history of Venous Thrombosis No family history of Pulmonary Embolism Immunizations Vaccine Date Status Comments Tdap completed Source: New Immunization Record Influenza, injectable, completed Source: Other Provider quadrivalent, preservative free, 3 yrs or older Payers Payer name Insurance type Covered libertarian ID Authorization(s) [facility] CI [id number] [facility] CI [id number] Social History Type Description Quantity Date Captured Alcohol Use Details No Caffeine Use Details Unknown Tobacco Use Status Unknown Smoking Status Never smoker Vital Signs Date / Height Weight BMI Pulse Blood Temperature Respiratory Body Head BMI Time: Rate Pressure Rate Surface Circumference percentile Area 159.80 33.4 / lbs 0 mm[Hg] 8:55 kg/m AM eter (2) Chief Complaint And Reason For Visit Unknown Chief Complaint And Reason For Visit Reason For Referral Reason For Referral Unknown Plan Of Care Date Type Action Status Future Order: Radiology Order Ultrasound OB Follow-up ([id number]) Ordered Future Order: Radiology Order Complete OB Ultrasound > 14 Ordered Weeks ([id number]) Date Type Problem Goal Intervention Status Start [...]
--- OUTSIDE RECORDS SUMMARY | 2017-08-01 08:53 | External Medical Summary | Continuity of Care Document ---
:1985 Author Organization [facility] Address [address] [place], [place] [id number] Phone Care Team Providers Name Role Phone Natalie Gonzalez MD Unavailable Unavailable Allergies, Adverse Reactions, Alerts Substance Reaction Severity Status No Known Drug Allergies Unknown Active Medications Medication Instructions Dosage Effective Dates Status Comments (start - stop) 28 mg-800 - Active mcg tablet vitamin E 100 unit - Active capsule Vitamin D2 50,000 take 1 [place] [address]170 UNITS - Active unit capsule oral route [...] second trimester 20 weeks gestation of - Procedures Procedure Date Unknown Results Test Name Date and Time Measure Units Reference Range Abnormal Flag Comments Unknown Advance Directives Directive Yes / No Effective Date File Name Unknown Encounters Encounter Practice Location Reason(s) Diagnoses Date Provider Care Team Description For Visit Members Associates Buster Encounter [place] In [facility] for suprvsn -[address] [place] [address], of normal Medical [address], , [place], second [place] [address], [id number], [email or web address] [place], [place], tel:[phone] gestation [id number], [address] of [place]. tel:[phone] Kendrick [place] [facility] In Womens -2016 [facility]. [facility] [place], Medical [address], [place], [address] [address], [id number], [place], [place], tel:[phone] [id number], [address] [place]. tel:[phone] Kendrick [place] Encounter [facility] In Womens for [facility]. [facility] [place], of normal Medical [address], , [place], second [place] [address], [id number], [place], [place], tel:[phone] gestation [id number], [address] of [place]. tel:[phone] Kendrick [place] Encounter [facility] In Womens Ultrasound for [facility]. [facility] [place], of normal Medical [address], , [place], second [place], [id number], [email or web address] [place], [place], tel:[phone] gestation [id number], [address] of [place]. tel:[phone] Kendrick [place] Encounter [place] In Womens for [facility]. [facility] [place], of normal Medical [address], , [place], second [place], [id number], [email or web address] [place], [place], tel:[phone] gestation [id number], [address] of [place]. tel:[phone] Kendrick [place] Encounter [place] In Womens for [facility]. [facility] [place], of normal Medical [address], , [place], first [place], [id number], [email or web address] [place], [place], tel:[phone] gestation [id number], [address] of [place]. tel:[phone] Family History Family Member Diagnosis Age At Onset Maternal Grandmother Breast Cancer No family history of Venous Thrombosis No family history of Pulmonary Embolism Immunizations Vaccine Date Status Comments Unknown Payers Payer name Insurance type Covered green party ID Authorization(s) [facility] CI [id number] Social History Type Description Quantity Date Captured [...] Complete OB Ultrasound > 14 Ordered Weeks (64015) Date Type Problem Goal Intervention Status Start [...]
--- OUTSIDE RECORDS SUMMARY | 2017-08-01 08:53 | External Medical Summary | Continuity of Care Document ---
:1987 Author Organization [facility] Address [address] [place], [place] [id number] Phone Care Team Providers Name Role Phone Natalie Gonzalez MD Unavailable Unavailable Allergies, Adverse Reactions, Alerts Substance Reaction Severity Status Substance Type Unknown Medications Medication Instructions Dosage Effective Dates Status Comments (start - stop) 28 mg-800 - Active mcg tablet vitamin E 100 unit - Active capsule Vitamin D2 50,000 take 1 capsule by 63063 UNITS - Active unit capsule oral route every week Problems Condition Effective Dates (start - stop) Clinical Status Encounter for suprvsn of normal - , second trimester 15 weeks gestation of - Encounter for suprvsn of normal - , first trimester 11 weeks gestation of - Encounter for suprvsn of normal - , second trimester 19 weeks gestation of - Procedures Procedure Date OB Visit No Charge Results Test Name Date and Time Measure Units Reference Range Abnormal Flag Comments Unknown Advance Directives Directive Yes / No Effective Date File Name Unknown Encounters Encounter Practice Location Reason(s) Diagnoses Date Provider Care Team Description For Visit Members Kendrick [place] Encounter [facility] In Women Ultrasound for [place]. [employer] [facility], of normal Medical [address], , [place], second [place] [address], [id number], [email or web address] [place], [place], tel:[phone] gestation [id number], [address] of [place]. tel:[phone] Kendrick [place] Encounter [facility] In [facility] for [place]. [facility], of normal Medical [address], , [place], second [place] [address], [id number], [email or web address] [place], [place], tel:[phone] gestation [id number], [address] of [place]. tel:[phone] Associates [place] Encounter [place] In Womens for [facility]. [facility] [place], of normal Medical [address], , [place], first [place] [address], [id number], [email or web address] [place], [place], tel:[phone] gestation [id number], [address] of [place]. tel:[phone] Family History Family Member Diagnosis Age At Onset Maternal Grandmother Breast Cancer No family history of Venous Thrombosis No family history of Pulmonary Embolism Immunizations Vaccine Date Status Comments Unknown Payers Payer name Insurance type Covered democrat ID Authorization(s) [facility] [id number] Social History Type Description Quantity Date Captured [...] Complete OB Ultrasound > 14 Ordered Weeks (80499) Date Type Problem Goal Intervention Status Start [...]
--- OUTSIDE RECORDS SUMMARY | 2017-08-01 08:53 | External Medical Summary | Continuity of Care Document ---
:1987 Author Organization [facility] Address [address] [place], [place] [phone] Phone Care Team Providers Name Role Phone Natalie Gonzalez MD Unavailable Unavailable Allergies, Adverse Reactions, Alerts Substance Reaction Severity Status No Known Drug Allergies Unknown Active Medications Medication Instructions Dosage Effective Dates Status Comments (start - stop) 28 - Active mg-800 mcg tablet vitamin E 100 - Active unit capsule Vitamin D2 50,000 take 1 capsule by 91532 UNITS - Active unit capsule oral route every week Keflex 500 mg take 1 capsule by 500 MG - No Longer capsule ORAL route 4 times Active every day Problems Condition Effective Dates (start - stop) Clinical Status Encounter for suprvsn of normal - , third trimester 30 weeks gestation of - Encounter for suprvsn [...] third trimester 31 weeks gestation of - Procedures Procedure Date 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 [facility] [place], of normal Medical [address], , [place], third [place] [address], [id number], [email or web address] [place], [place], tel:[phone] gestation [id number], [address] of [place]. tel:[phone] Kendrick [place] Encounter [place] In Womens for [facility]. [facility] [place], of normal Medical [address], , [place], third [place], [id number], [email or web address] [place], [place], tel:[phone] gestation [id number], [address] of [place]. tel:[phone] Kendrick [place] Encounter [place] In Womens for [facility]. [facility] [place], of normal Medical [address], , [place], third [place] [address], [id number], [place], [place], tel:[phone] gestation [id number], [address] of [place]. tel:[phone] Kendrick [place] Encounter [place] In Womens for [facility]. [facility] [place], of normal Medical [address], , [place], second [place] [address], [id number], [email or web address] [place], [place], tel:[phone] gestation [id number], [address] of [place]. tel:[phone] Kendrick [place] Encounter [place] In Womens for [facility]. [facility] [place], of normal Medical [address], , [place], second [place], [id number], [email or web address] [place], [place], tel:[phone] gestation [id number], [address] of [place]. tel:[phone] Kendrick [place] Encounter [place] In Womens Ultrasound for [facility]. [facility] [place], of normal Medical [address], , [place], second [place], [id number], [email or web address] [place], [place], tel:[phone] gestation [id number], [address] of [place]. tel:[phone] Kendrick [place] Encounter [place] In Womens for [facility]. [facility] [place], of normal Medical [address], , [place], second [place], [id number], [email or web address] [place], [place], tel:[phone] gestation [id number], [address] of [place]. tel:[phone] Kendrick [place] Encounter [place] In Womens for [facility]. [facility] [place], of normal Medical [address], , [place], first [place], [id number], [place], [place], tel:[phone] gestation [id number], [address] of [place]. tel:[phone] Family History Family Member Diagnosis Age At Onset Maternal Grandmother Breast Cancer No family history of Venous Thrombosis No family history of Pulmonary Embolism Immunizations Vaccine Date Status Comments Unknown Payers Payer name Insurance type Covered alliance party ID Authorization(s) [facility] CI [id number] Social History Type Description Quantity Date Captured Alcohol Use Details No Caffeine Use Details Unknown Tobacco Use Status Unknown Smoking Status Never smoker Vital Signs Date / Height Weight BMI Pulse Blood Temperature Respiratory Body Head BMI Time: Rate Pressure Rate Surface Circumference percentile Area 155.00 32.3 108/ lbs 9 mm[Hg] 10:29 kg/m AM eter (2) Chief Complaint And Reason For Visit Unknown Chief Complaint And Reason For Visit Reason For Referral Reason For Referral Unknown Plan Of Care Date Type Action Status Appointment Melissa Walsh BOOKED Future Order: Radiology Order Complete OB Ultrasound > 14 Ordered Weeks (33237) Date Type Problem Goal Intervention Status Start [...]
--- OUTSIDE RECORDS SUMMARY | 2017-08-01 08:53 | External Medical Summary | Continuity of Care Document ---
:1985 Author Organization [facility] Address [address] [place], [place] [phone] Phone Care Team Providers Name Role Phone Natalie Gonzalez MD Unavailable Unavailable Allergies, Adverse Reactions, Alerts Substance Reaction Severity Status Substance Type Unknown Medications Medication Instructions Dosage Effective Dates Status Comments (start - stop) 28 mg-800 - Active mcg tablet vitamin E 100 unit - Active capsule Vitamin D2 50,000 take 1 capsule by [address]39 UNITS - Active unit capsule oral route [...] Visit Members Kendrick [place] Encounter [place] In [facility] for suprvsn -[address], of normal Medical [address], , [place], second [place], [id number], [email or web address] [place], [place], tel:[phone] gestation [id number], [address] of [place]. tel:[phone] Kendrick [place] Encounter [place] In Womens Ultrasound for [facility]. [facility] [place], of normal Medical [address], , [place], second [place], [id number], [email or web address] [place], [place], tel:[phone] gestation [id number], [address] of [place]. tel:[phone] Kendrick [place] Encounter [place] In Womens for [facility]. [facility] [place], of normal Medical [address], , [place], second [place], [id number], [email or web address] [place], [place], tel:[phone] gestation [id number], [address] of [place]. tel:[phone] Kendrick [place] Encounter [place] In Womens for [facility]. [facility] [place], of normal Medical [address], , [place], first [place], [id number], [email or web address] [place], [place], tel:[phone] gestation [id number], [address] of [place]. tel:[phone] Family History Family Member Diagnosis Age At Onset Maternal Grandmother Breast Cancer No family history of Venous Thrombosis No family history of Pulmonary Embolism Immunizations Vaccine Date Status Comments Unknown Payers Payer name Insurance type Covered alliance party ID Authorization(s) [facility] CI [id number] Social History Type Description Quantity Date Captured Alcohol Use Details No Caffeine Use Details Unknown Tobacco Use Status Unknown Smoking Status Never smoker Vital Signs Date / Height Weight BMI Pulse Blood Temperature Respiratory Body Head BMI Time: Rate Pressure Rate Surface Circumference percentile Area 144.90 30.2 lbs 8 mm[Hg] 11:02 kg/m AM eter (2) Chief Complaint And Reason For Visit Unknown Chief Complaint And Reason For Visit Reason For Referral Reason For Referral Unknown Plan Of Care Date Type Action Status Appointment Melissa Walsh BOOKED Future Order: Radiology Order Complete OB Ultrasound > 14 Ordered Weeks (38484) Date Type Problem Goal Intervention Status Start [...]
--- OUTSIDE RECORDS SUMMARY | 2017-08-01 08:53 | External Medical Summary | Continuity of Care Document ---
:1987 Author Organization [facility] Address [address] [place], [place] [phone] Phone Care Team Providers Name Role Phone Natalie Gonzalez MD Unavailable Unavailable Allergies, Adverse Reactions, Alerts Substance Reaction Severity Status Substance Type Unknown Medications Medication Instructions Dosage Effective Dates Status Comments (start - stop) 28 mg-800 - Active mcg tablet vitamin E 100 unit - Active capsule Vitamin D2 50,000 take 1 [place] 82633 UNITS - Active unit capsule oral route [...] weeks gestation of - Procedures Procedure Date Ultrasound exam of preg uterus, complete Results Test Name Date and Time Measure Units Reference Range Abnormal Flag Comments Unknown Advance Directives Directive Yes / No Effective Date File Name Unknown Encounters Encounter Practice Location Reason(s) Diagnoses Date Provider Care Team Description For Visit Members Kendrick [place] Encounter [place] In [facility] for suprvsn -[address], of normal Medical [address], , [place], second [place] [address], [id number], [place], [place], tel:[phone] gestation [id number], [address] of [place]. tel:[phone] Kendrick [place] Encounter [place] In Womens Ultrasound for [facility]. [facility] [place], of normal Medical [address], , [place], second [place] [address], [id number], [email or web address] [place], [place], tel:[phone] gestation [id number], [address] of [place]. tel:[phone] Kendrick [place] Encounter [place] In Womens for [place]. [facility] [place], of normal Medical [address], , [place], second [place] [address], [id number], [email or web address] [place], [place], tel:[phone] gestation [id number], [address] of [place]. tel:[phone] Kendrick [place] Encounter [place] In Womens for [facility]. [facility] [place], of normal Medical [address], , [place], first [place], [id number], [email or web address] [place], [place], tel:[phone] gestation [id number], [address] of [place]. tel:[phone] Family History Family Member Diagnosis Age At Onset Maternal Grandmother Breast Cancer No family history of Venous Thrombosis No family history of Pulmonary Embolism Immunizations Vaccine Date Status Comments Unknown Payers Payer name Insurance type Covered alliance party ID Authorization(s) [facility] CI [id number] Social History Type Description Quantity Date Captured [...] Complete OB Ultrasound > 14 Ordered Weeks (18973) Date Type Problem Goal Intervention Status Start [...]
--- OUTSIDE RECORDS SUMMARY | 2017-08-01 08:53 | External Medical Summary | Continuity of Care Document ---
:1987 Author Organization [facility] [employer] [facility] Address [address] [place], [place] [address] Phone Care Team Providers Name Role Phone Natalie Gonzalez MD Unavailable Unavailable Allergies, Adverse Reactions, Alerts Substance Reaction Severity Status No Known Drug Allergies Unknown Active Medications Medication Instructions Dosage Effective Dates Status Comments (start - stop) 28 mg-800 - Active mcg tablet vitamin E 100 unit - Active capsule Vitamin D2 50,000 take 1 capsule [place] 85161 UNITS - Active unit capsule oral route [...] [place], third [place], [id number], [email or web address] [place], [place], tel:[phone] gestation [id number], [address] of [place]. tel:[phone] Kendrick [place] Encounter [place] In Womens for [facility]. [facility] [place], of normal Medical [address], , [place], third [place] [address], [id number], [email or web address] [place], [place], tel:[phone] gestation [id number], [address] of [place]. tel:[phone] Kendrick [place] In Womens -2016 [place]. [facility] [place], Medical [address], [place], [place], [id number], [place], [place], tel:[phone] [id number], [address] [place]. tel:[phone] Kendrick [place] Encounter [place] In Womens for [facility]. [facility] [place], of normal Medical [address], , [place], third [place], [id number], [email or web address] [place], [place], tel:[phone] gestation [id number], [address] of [place]. tel:[phone] Kendrick [place] Encounter [place] In Womens for [facility]. [facility] [place], of normal Medical [address], , [place], second [place], [id number], [email or web address] [place], [place], tel:[phone] gestation [id number], [address] of [place]. tel:[phone] Kendrick [place] Encounter [place] In Womens for [facility]. [facility] [place], of normal Medical [address], , [place], second [place], [id number], [email or web address] [place], [place], tel:[phone] gestation [id number], [address] of [place]. tel:[phone] Kendrick [place] Encounter [place] In Womens Ultrasound for [facility]. [facility] [place], of normal Medical [address], , [place], second [place], [id number], [email or web address] [place], [place], tel:[phone] gestation [id number], [address] of [place]. tel:[phone] Kendrick [place] Encounter [place] In Womens for [facility]. [facility], of normal Medical [address], , [place], second [place], [id number], [email or web address] [place], [place], tel:[phone] gestation [id number], [address] of [place]. tel:[phone] Kendrick [place] Encounter [place] In Womens for [place]. [facility], of normal Medical [address], , [place], first [place], [id number], [email or web address] [place], [place], tel:[phone] gestation [id number], [address] of [place]. tel:[phone] Family History Family Member Diagnosis Age At Onset Maternal Grandmother Breast Cancer No family history of Venous Thrombosis No family history of Pulmonary Embolism Immunizations Vaccine Date Status Comments Unknown Payers Payer name Insurance type Covered republican ID Authorization(s) [facility] CI [id number] Social History Type Description Quantity Date Captured [...] Complete OB Ultrasound > 14 Ordered Weeks (35198) Date Type Problem Goal Intervention Status Start [...]
--- OUTSIDE RECORDS SUMMARY | 2017-08-01 08:53 | External Medical Summary | Continuity of Care Document ---
:1987 Author Organization [facility] [employer] [facility] Address [address] [place], [place] [phone] Phone Care Team Providers Name Role Phone Natalie Gonzalez MD Unavailable Unavailable Allergies, Adverse Reactions, Alerts Substance Reaction Severity Status Substance Type Unknown Medications Medication Instructions Dosage Effective Dates Status Comments (start - stop) 28 mg-800 - Active mcg tablet vitamin E 100 unit - Active capsule Vitamin D2 50,000 take 1 capsule by 37232 UNITS - Active unit capsule oral route every week Problems Condition Effective Dates (start - stop) Clinical Status Encounter for suprvsn of normal - , first trimester 11 weeks gestation of - Procedures Procedure Date Initial OB Visit 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 GONORRHOEAE RNA, TMA CHLAMYDIA NOT DETECTED NOT DETECTED N TRACHOMATIS RNA, 16:23:00 TMA NEISSERIA NOT DETECTED NOT DETECTED N GONORRHOEAE RNA, 16:23:00 TMA [id number] SEE NOTE This test was 16:23:00 performed using the APTIMA COMBO2 Assay([employer] The analytical performance characteristics of this assay, when used to test SurePath specimens havebeen determined by [employer]. REPORT COMMENT:FASTING:UNKNO WNTest performed at [facility] [id number] [place] [address]Yfyldhra: YANNI GANNON DO,MPH Panel Description: OBSTETRIC PANEL [...] fL 7.5-12.5 N 16:28:00 ABSOLUTE 4685 cells/uL [id number] N NEUTROPHILS 16:28:00 ABSOLUTE 1707 cells/uL [id number] [...] or current infection withrubella virus.Test performed at [facility] [id number] [facility]ALL[facility] del DíaHARBOR BEACH COMMUNITY [place] [address]Urgrlwl r: YANNI GANNON DO,MPH Panel Description: HIV [...] this purpose. For additional information please refer tohttp://education.Markado/faq/OOL301(This link is being provided for informational/educational purposes only.) The performance of this assay has not been clinicallyvalidated in patients less than 2 years old. REPORT COMMENT:FASTING:NOTest performed at [facility] [id number] [place] [address]Ymjqqwwj: YANNI GANNON DO,MPH Panel Description: Bacteria identified in Urine by Culture CULTURE, URINE, 16:30:00 SEE NOTE CULTURE, URINE, ROUTINE ROUTINE MICRO NUMBER: [id number] TEST STATUS: FINAL SPECIMEN SOURCE: URINE, CLEAN CATCH SPECIMEN QUALITY: ADEQUATE RESULT: No GrowthREPORT COMMENT:RFASTING:UNKNOWNTest performed at [facility] [id number] [place] [address]Qegtpmka: YANNI GANNON DO,MPH Advance Directives Directive Yes / No Effective Date File Name Unknown Encounters Encounter Practice Location Reason(s) Diagnoses Date Provider Care Team Description For Visit Members Associates In [place] Encounter [facility] for suprvs [place]. [address], [address] of normal Medical [address], , [place], first [place], [id number], [place] [email or web address] [place], tel:[phone] weeks [place], 6790 gestation of [id number], [place]. tel:[phone] Family History Family Member Diagnosis Age At Onset Maternal Grandmother Breast Cancer No family history of Venous Thrombosis No family history of Pulmonary Embolism Immunizations Vaccine Date Status Comments Unknown Payers Payer name Insurance type Covered republican ID Authorization(s) [facility] CI [id number] Social History Type Description Quantity Date Captured [...]
--- OUTSIDE RECORDS SUMMARY | 2017-08-01 08:53 | External Medical Summary | Continuity of Care Document ---
:1985 Author Organization [facility] Address [address] [place], [place] [id number] Phone Care Team Providers Name Role Phone Natalie Gonzalez MD Unavailable Unavailable Allergies, Adverse Reactions, Alerts Substance Reaction Severity Status No Known Drug Allergies Unknown Active Medications Medication Instructions Dosage Effective Dates Status Comments (start - stop) 28 mg-800 - Active mcg tablet vitamin E 100 unit - Active capsule Vitamin D2 50,000 take 1 capsule by 21972 UNITS - Active unit capsule oral route [...] Visit Members Associates Buster Encounter [facility] In [facility] for suprvsn -[address] [place] [address], of normal Medical [address], , [place], second [place] 120, [id number], [email or web address] [place], [place] weeks [place], tel:[phone] gestation [id number], [address] of [place]. tel:[phone] Kendrick Goins Encounter [facility] In [facility]om[facility] for [place]. [address] [place], of normal Medical [address], , [place], second [place] 120, [id number], [email or web address] [place], [place] weeks [place], tel:[phone] gestation [id number], [address] of [place]. tel:[phone] Kendrick Goins Encounter [facility] In Womens Ultrasound for Jake. [address] [place], of normal Medical [address], , [place], second [place] 120, [id number], [email or web address] [place], [place] weeks [place], tel:[phone] gestation [id number], [address] of [place]. tel:[phone] Kendrick Goins Encounter [facility] In Womens for [place]. [address] [place], of normal Medical [address], , [place], second [place] 120, [id number], [email or web address] [place], [place] weeks [place], tel:[phone] gestation [id number], [address] of [place]. tel:[phone] Kendrick Goins Encounter [place] In Womens for [place]. [address] [place], of normal Medical [address], , [place], first [place] 120, [id number], [email or web address] [place], [place] weeks [place], tel:[phone] gestation [id number], [address] of [place]. tel:[phone] Family History Family Member Diagnosis Age At Onset Maternal Grandmother Breast Cancer No family history of Venous Thrombosis No family history of Pulmonary Embolism Immunizations Vaccine Date Status Comments Unknown Payers Payer name Insurance type Covered democrat ID Authorization(s) [facility] [id number] Social History Type Description Quantity Date Captured Alcohol Use Details No Caffeine Use Details Unknown Tobacco Use Status Unknown Smoking Status Never smoker Vital Signs Date / Height Weight BMI Pulse Blood Temperature Respiratory Body Head BMI Time: Rate Pressure Rate Surface Circumference percentile Area 148.20 30.9 107/ lbs 7 mm[Hg] 10:08 kg/m AM eter (2) Chief Complaint And Reason For Visit Unknown Chief Complaint And Reason For Visit Reason For Referral Reason For Referral Unknown Plan Of Care Date Type Action Status Appointment Melissa Walsh BOOKED Future Order: Radiology Order Complete OB Ultrasound > 14 Ordered Weeks ([id number]) Date Type Problem Goal Intervention Status Start [...]
--- OUTSIDE RECORDS SUMMARY | 2017-08-01 08:53 | External Medical Summary | Continuity of Care Document ---
:1985 Author Organization [facility] Address [address] [place], [place] [id number] Phone Care Team Providers Name Role Phone Natalie Gonzalez MD Unavailable Unavailable Allergies, Adverse Reactions, Alerts Substance Reaction Severity Status Substance Type Unknown Medications Medication Instructions Dosage Effective Dates Status Comments (start - stop) 28 mg-800 - Active mcg tablet vitamin E 100 unit - Active capsule Vitamin D2 50,000 take 1 capsule by 51787 UNITS - Active unit capsule oral route every week Problems Condition Effective Dates (start - stop) Clinical Status Encounter for suprvsn of normal - , first trimester 11 weeks gestation of - Procedures Procedure Date Initial OB Visit No Charge - WOODWORKER HELPER Infct antign, chlamydia trac, ampl Neisseria Gonorrhoeae, Amplification OB Panel With An HIV Urine Culture Venpnctr fngr/heel/ear stick routne Results Test Name Date and Time Measure Units Reference Range Abnormal Flag Comments Panel Description: CHLAMYDIA/N. GONORRHOEAE RNA, TMA CHLAMYDIA NOT DETECTED NOT DETECTED N TRACHOMATIS RNA, 16:23:00 TMA NEISSERIA NOT DETECTED NOT DETECTED N GONORRHOEAE RNA, 16:23:00 TMA [id number] SEE NOTE This test was 16:23:00 performed using the APTIMA COMBO2 Assay([employer] The analytical performance characteristics of this assay, when used to test SurePath specimens havebeen determined by [facility]. REPORT COMMENT:FASTING:UNKNO WNTest performed at [facility] [id number] [place] [address]Bmklgzmy: YANNI GANNON DO,MPH Panel Description: Pap Smear With HPV Reflex If ASCUS Document Panel Description: OBSTETRIC PANEL WHITE BLOOD CELL [...] fL 7.5-12.5 N 16:28:00 ABSOLUTE 4685 cells/uL 1698-3157 N NEUTROPHILS 16:28:00 ABSOLUTE 1707 cells/uL 850-3900 [...] or current infection withrubella virus.Test performed at [facility] [id number] [facility]ITAL[place] [address]Seftqik r: YANNI GANNON DO,MPH Panel Description: HIV [...] this purpose. For additional information please refer tohttp://education.Ocapi/faq/TSG947(This link is being provided for informational/educational purposes only.) The performance of this assay has not been clinicallyvalidated in patients less than 2 years old. REPORT COMMENT:FASTING:NOTest performed at [facility] [id number] [facility] PEORIAAndrew Michaels LtdASCENSION BORGESS LEE HOSPITAL[place] [address]Eefnasav: YANNI GANNON DO,MPH Panel Description: Bacteria identified in Urine by Culture CULTURE, URINE, 16:30:00 SEE NOTE CULTURE, URINE, ROUTINE ROUTINE MICRO NUMBER: [id number] TEST STATUS: FINAL SPECIMEN SOURCE: URINE, CLEAN CATCH SPECIMEN QUALITY: ADEQUATE RESULT: No GrowthREPORT COMMENT:RFASTING:UNKNOWNTest performed at [facility] [id number] [place] [address]Hmwkrxpo: YANNI GANNON DO,MPH Advance Directives Directive Yes / No Effective Date File Name Unknown Encounters Encounter Practice Location Reason(s) Diagnoses Date Provider Care Team Description For Visit Members [facility] In [place] Encounter [facility] for [facility] [place]. [address] [place], [address] [facility] [address], , [place], first [place] [address], [id number], [place] [email or web address] [place], tel:[phone] weeks [place], 6790 gestation of [id number], [place]. tel:[phone] Family History Family Member Diagnosis Age At Onset Maternal Grandmother Breast Cancer No family history of Venous Thrombosis No family history of Pulmonary Embolism Immunizations Vaccine Date Status Comments Unknown Payers Payer name Insurance type Covered alliance party ID Authorization(s) [facility] [id number] Social History Type Description Quantity Date Captured Alcohol Use Details No Caffeine Use Details Unknown Tobacco Use Status Never smoked tobacco Smoking Status Never smoker Non-Smoking Tobacco Use : No Details Available : No Details Available Details Vital Signs Date / Height Weight BMI Pulse Blood Temperature Respiratory Body Head BMI Time: Rate Pressure Rate Surface Circumference percentile Area 138.00 28.8 111 lbs 4 mm[Hg] 3:36 kg/m PM eter (2) Chief Complaint And Reason For Visit Unknown Chief Complaint And Reason For Visit Reason For Referral Reason For Referral Unknown Plan Of Care Date Type Action Status Appointment Melissa Walsh BOOKED Date Type Problem [...]
--- OUTSIDE RECORDS SUMMARY | 2017-08-01 08:54 | External Medical Summary | Continuity of Care Document ---
:1985 Author Organization [facility] Allergies Active Description Code Type Severity Reaction Onset Reported/ Identified Relationship Clinical to Patient Status Yes No Known 67174 3 N/A N/A Drug 0 Allergies Yes No Known 87198 ND N/A N/A 12/16/2012 Confirmed Drug Allergy 590 or Verified Medications Medication Packaging Start Date Stop Date Route Dosage Sig Capsule 05/28/2017 06/03/2017 KEFLEX take 1 capsule by ORAL route 4 times every day Tablet 05/28/2017 07/23/2017 ASPIRIN EC take 1 tablet by oral route every day Tablet 06/03/2017 ASPIRIN EC take 1 tablet by oral route every day Problems Date Dx Coded Attending Type Code Diagnosis Diagnosed By 09/20/2011 D V22.1 SUPERVIS OTH NORMAL PREG 12/10/2011 A 650 NORMAL DELIVERY 12/10/2011 D 664.21 DEL W 3 DEG LACERAT-DEL 12/10/2011 D V06.1 VACCIN FOR COMB DTP DTAP 12/10/2011 D V27.0 DELIVER-SINGLE LIVEBORN 12/17/2012 THAI RAE MD 645.11 POST TERM PREG DELIVERED 12/17/2012 THAI RAE MD 664.11 DEL W 2 DEG LACERAT-DEL 12/17/2012 THAI RAE MD V27.0 DELIVER-SINGLE LIVEBORN 03/20/2017 Jake Fam Z34.82 Encounter for suprvsn of normal , second trimester 03/20/2017 Jake Fam Z3A.19 19 weeks gestation of 07/17/2017 Jake Fam O36.5930 Matern care for oth or susp poor fetl grth, third tri, unsp 07/17/2017 Jake Fam Z3A.37 37 weeks gestation of Procedures Code Description [place] [address] GLUCOSE THAI RAE MD 09/20/2011 TOLERANCE TEST (GTT) 44870 GTT-ADDED THAI RAE MD 09/20/2011 SAMPLES 7359 MANUAL THAI RAE MD 12/08/2011 ASSIST DELIV NEC 7534 KYRA VARGSA, THAI 12/08/2011 MONITORING NEC 7569 REPAIR OB KYRA VARGAS, THAI 12/08/2011 LACERATION NEC 9955 VACCINATION KYRA VARGAS, TAHI 12/10/2011 NEC 0391 ANESTH KYRA VARGAS, THAI 12/16/2012 INJECT-SPIN CANAL 7301 INDUCT KYRA VARGAS, THAI 12/16/2012 LABOR-RUPT MEMB 7359 MANUAL KRYA VARGAS, THAI 12/16/2012 ASSIST DELIV NEC 7534 KYRA VARGAS, THAI 12/16/2012 MONITORING NEC 7569 REPAIR OB KYRA VARGAS, THAI 12/16/2012 LACERATION NEC 72863 Ultrasnd 03/20/2017 exam of preg uterus, compl 46240 Ultrasnd 07/17/2017 preg uterus, flwup/repeat Results Test Result Range CBC - 12/16/12 07:10 Granulocyte # 4.2 x10^3 3.0-7.0 Granulocyte % 71.7 % 50-70 HCT 36.3 % 37.0-47.0 HGB 12.3 G/DL 12.0-16.0 Lymph # 1.4 x10^3 1.0-4.0 Lymph % 24.4 % 20-50 MCH 32.2 PG 27.0-31.0 MCHC 33.9 G/DL 32.0-36.0 MCV 95 FL 81-99 [place] # 0.2 x10^3 0.0-0.8 [place] % 3.9 % 1.0-9.0 MPV 7.0 FL 6.0-10.0 Platelet 166 x10^3 150-400 RBC 3.82 x10^3 4.20-5.40 RDW 13.7 % 10.0-13.0 WBC 5.8 x10^3 4.8-10.8 HCT - 12/17/12 07:05 HCT 38.0 % 37.0-47.0 HGB - 12/17/12 07:05 HGB 12.4 G/DL 12.0-16.0 Encounters ACCT No. Visit Discharge Status Pt. Type Provider Facility Loc./Unit Complaint Date/Time [id number] 12/16/2012 12/17/2012 DIS Inpatient FAST Jennifer VARGAS 06:31:00 17:11:00 [facility] [id number] 12/08/2011 Document 21:00:00 Registrat ion [id number] 09/20/2011 Document 11:54:00 Registrat ion [id number] 07/17/2017 07/17/2017 CLS Outpatien [place], 11:15:00 23:59:59 t Jake Perez [id number] 07/17/2017 07/17/2017 CLS Outpatien [place], 10:45:00 23:59:59 t Jake Perez [id number] 07/15/2017 07/15/2017 CLS Outpatien [place], 10:19:00 23:59:59 t Jake Perez [id number] 07/08/2017 07/08/2017 CLS Outpatien [place], 08:30:00 23:59:59 t Jake Perez [id number] 07/03/2017 07/03/2017 CLS Outpatien [place], 14:21:00 23:59:59 t Jake Perez [id number] 06/24/2017 06/24/2017 CLS Outpatien [place], 11:30:00 23:59:59 t Jake Perez [id number] 06/03/2017 06/03/2017 CLS Outpatien [place], 09:15:00 23:59:59 t Jake Perez [id number] 05/28/2017 05/28/2017 CLS Outpatien [place], 13:32:00 23:59:59 t Jake Perez [id number] 05/28/2017 05/28/2017 CLS Outpatien [place], 10:15:00 23:59:59 t Jake Perez [id number] 05/28/2017 05/28/2017 CLS Outpatien [place], 09:01:00 23:59:59 t Jake Perez [id number] 05/15/2017 05/15/2017 CLS Outpatien [place], 09:10:00 23:59:59 t Jake Perez [id number] 04/17/2017 04/17/2017 CLS Outpatien [place], 10:00:00 23:59:59 t Jake Perez [id number] 04/09/2017 04/09/2017 CLS Outpatien [place], 09:06:00 23:59:59 t Jake Perez [id number] 03/20/2017 03/20/2017 CLS Outpatien [place], 10:45:00 23:59:59 t Jake Perez [id number] 03/20/2017 03/20/2017 CLS Outpatien [place], 10:15:00 23:59:59 t Jake Perez [id number] 02/20/2017 02/20/2017 CLS Outpatien [place], 10:10:00 23:59:59 t Jake Perez [id number] 02/16/2017 02/16/2017 CLS Outpatien [place], 22:09:00 23:59:59 t Jake Perez [id number] 01/23/2017 01/23/2017 CLS Outpatien [place], 15:15:00 23:59:59 t Jake Perez [id number] 07/24/2017 Document 09:20:00 Registrat ion
[2017-08-01 09:26] VITALS: RESP 16
[2017-08-01] MEDS: LR 1,000 ML IV PRN ×2 (09:35→10:11)
[2017-08-01 09:37] VITALS: BMI 24.4
[2017-08-01] MEDS ORDERED: ONDANSETRON 4 MG/2 ML INJECTION IVP PRN (12:22)
[2017-08-01] MEDS ORDERED: NALOXONE 0.4 MG/ML INJECTION IVP PRN (12:22)
[2017-08-01] MEDS ORDERED: ROPIVACAINE 1% 10MG/ML INJ 200 MG, SUFentanil 50 MCG in NS 100 ML EPI PRN (12:22)
[2017-08-01] MEDS ORDERED: DiphenhydrAMINE 50 MG/ML INJECTION IVP PRN (12:22)
--- NOTE | 2017-08-01 12:22 | Anesthesia Preoperative Report ---
Anesthesia Epidural/Spinal Rec - Date and Time Date: 08/01/17 Preoperative Diagnosis: scheduled induction of term Procedure: Labor Epidural Plan: Epidural - Vital Signs Vital Signs: Temperature 98.3 F 08/01/17 09:21 Pulse Rate 95 08/01/17 09:21 Respiratory Rate 16 08/01/17 09:21 Blood Pressure 118/64 08/01/17 09:21 Pulse Oximetry 100 08/01/17 09:21 /Para: P:2 Heart Rate: 138 - Medictaions & Allergies Inpatient Medications: Current Medications Acetaminophen (Tylenol) 500 - 1,000 mg PO Q4H PRN PRN Reason: Pain Al Hydroxide/Mg Hydroxide (Maalox Plus) 30 ml PO Q3H PRN PRN Reason: Indigestion Calcium Carbonate (Tums) 500 - 1,000 mg PO Q2H PRN PRN Reason: Indigestion Carboprost Tromethamine (Hemabate) 250 mcg IM O PRN PRN Reason: .Downtime Lactated Ringer's (Lactated Ringers) 1,000 mls @ 999 mls/hr IV .Q1H1M PRN Last Admin: 08/01/17 10:11 Dose: 999 mls/hr Oxytocin (Pitocin Drip) 30 unit in 500 mls @ 2 mls/hr IV .Q24H PRN; Protocol PRN Reason: Induction/Augmentation Last Admin: 08/01/17 09:36 Dose: 2 mls/hr Dextrose/Lactated Ringer's (Dextrose 5%-Lactated Ringers) 1,000 mls @ 125 mls/ hr IV .Q8H PRN PRN Reason: Labor Last Admin: 08/01/17 09:33 Dose: 125 mls/hr Lidocaine HCl (Xylocaine-Mpf 1% Vial) 0.2 mg ID O PRN PRN Reason: IV Start Methylergonovine Maleate (Methergine) 0.2 mg IM O PRN Misoprostol (Cytotec) 800 mcg FL ONCE PRN Allergies/Adverse Reactions: Allergies Allergy/AdvReac Type Severity Reaction Status Date / Time No Known Allergies Allergy Verified 08/01/17 09:38 - Home Medications Home Medications: Home Medications Medication Instructions Recorded Confirmed Type Vitamins 1 tab PO DAILY 07/24/17 08/01/17 History Vitamin C 1 tab PO DAILY 07/24/17 08/01/17 History Vitamin D-2 1 tab PO DAILY 07/24/17 08/01/17 History - Medical History Respiratory: DENIES: Asthma, Bronchitis, Chronic Obstructive Pulmonary Disease (COPD), Dyspnea, Orthopnea, Pulmonary Embolism, Pneumonia, Upper Respiratory Infection, Pulmonary Edema, Sleep Apnea, Tuberculosis, Other Cardiovascular: DENIES: Abnormal EKG, Angina, Arrhythmia, Congestive Heart Failure, Coronary Artery Disease, Heart Murmur, Hypertension, Hypotension, High Cholesterol, Myocardial Infarction, Rheumatic Fever, Valvular Heart Disease, Other Gastrointestional: DENIES: Obstructive Bowel, Hepatitis, Cirrhosis, Nausea or Vomiting Present, Gastroesophageal Reflux Disease, Gastrointestinal Bleeding, Hiatal Hernia, Ulcer , Morbid Obesity, Other Neuro/Musculoskeletal: Denies: HX.MS.OSAR, Back Problems, Cerebrovascular Accident, Depression, Headaches, Loss of Consciousness, Muscle Weakness, Neuromuscular Disorder, Paralysis, Paresthesia, Syncope, Seizures, Other Renal/Endocrine: DENIES: Diabetes Mellitus Type 1, Diabetes Mellitus Type 2, Renal Failure, Dialysis, Thyroid Disease, Weight Loss, Weight Gain, Other Other History: Reports: Now - Surgical History Musculoskeletal Surgery/Tx: Reports: Other (surgery for broken arm as child) Reproductive Surgery/Treatment: DENIES: Section Anesthesia Reactions: None Hx Family Anesthesia Reaction: No History of Motion Sickness: No - Social History Smoking Status: Never smoker Substance Use Type: does not use Alcohol Intake Frequency: does not drink - Pertinent Findings Lab Data: CBC and BMP 08/01/17 09:12 EKG Rhythm: Normal Sinus Rhythm - Physical Exam Respiratory Exam: lungs clear, bilateral breath sounds equal Cardiovascular Exam: regular rate and rhythm, no murmur - Airway Assessment Mallampati Score: II TMD: 3 Fingerbreadths Neck Extension: good Overall Assessment: may be difficult intubation - ASA ASA Score: 2 - Discussion Discussion: Discussed risks/options/alternatives of anesthesia and questions answered. Patient consents. Nursing pain assessment noted. Anesthesia Discussion: spouse Attestation Statement: Prior to the delivery of any anesthetic medication, I examined the patient, developed the plan, obtained the patient's consent and discussed the risk and benefits of the procedure with the patient/guardian.
--- NOTE | 2017-08-01 16:43 | Labor and Delivery Note ---
DATE OF DELIVERY: 08/01/2017 DIAGNOSES 1. 32-year-old white female, G3, P2 at 39.0 weeks gestational age. 2. Pitocin induction of labor. 3. Epidural block. 4. Artificial rupture of membranes. 5. Spontaneous vaginal delivery. 6. Nuchal cord x 1 - delivered through. 7. Female , Apgars, 3938 g (7 pounds 13 ounces) ([place]). 8. First-degree perineal laceration, repaired. BRIEF DESCRIPTION This is a patient of mine who was brought in for induction for logistics today. She was 3 cm dilated. Pitocin reached a maximum of 20 milliunits/min. Patient received an epidural block and then AROM occurred at 12:11 p.m. Clear fluid was noted. The patient slowly progressed in labor until we were completely dilated and then we began pushing. Spontaneous vaginal delivery occurred from the OA position. Infant was bulb suctioned after delivery of the head and then again after delivery of the body. Cord was allowed to drain for about a minute and a half and then it was doubly clamped and the infant's father cut the cord. Infant was initially placed on the mother's abdomen. Placenta delivered spontaneously and was intact. Membranes were a bit retentive but I was slowly able to tease them out with a ring forceps. There was a small first-degree perineal laceration that was repaired with 3-0 chromic in a running, locking and then nonlocking fashion with the knot on the outside. EBL was 250. At time of dictation mother and are doing well. Maternal blood type is A+, GBS is negative and rubella is immune. The patient is in compression stockings and will continue that until six weeks . MTDD
[2017-08-01] MEDS ORDERED: HYDROCORTISONE 2.5% CREAM 30gm RECTALLY PRN (16:48)
[2017-08-01] MEDS ORDERED: DiphenhydrAMINE 25 MG CAPSULE PO PRN (16:48)
[2017-08-01] MEDS ORDERED: HYDROCODONE/APAP 5mg/325mg TABLET PO PRN (16:48)
[2017-08-01] MEDS ORDERED: BENZOCAINE 20% SPRAY 0.5 ML MM ONE (16:48)
[2017-08-01] MEDS: OXYTOCIN DRIP 30 UNIT/500 ML ML IV SCH (18:33)
[2017-08-01] MEDS: IBUPROFEN 800 MG TABLET PO PRN (23:34)
[2017-08-02] MEDS: OXYTOCIN DRIP 30 UNIT/500 ML ML IV SCH (02:30)
[2017-08-02] MEDS: IBUPROFEN 800 MG TABLET PO PRN ×2 (07:23→17:04)
[2017-08-02] MEDS ORDERED: DOCUSATE CALCIUM 240 MG CAPSULE PO SCH (09:00)
--- NOTE | 2017-08-02 11:34 | OB/GYN Progress Note ---
OB-PP Progress Note - General PPD1 Maternal Group B Strep: Negative Maternal blood type: A+ Maternal Rubella Status: Immune - Subjective Date: 08/02/17 Lochia: Minimal Pain: controlled Voiding: voiding - Objective Vital Signs: Last Vital Signs Temp 98.2 F 08/02/17 10:00 Pulse 66 08/02/17 10:00 Resp 16 08/02/17 10:00 BP 98/50 08/02/17 10:00 Pulse Ox 100 08/02/17 10:00 General: alert and oriented Abdomen: fundus firm, non-tender Extremities: non-tender - Assessment Assessment: - Plan Plan: routine care, discharge home, continue PNV
[2017-08-02 16:43] VITALS: BP 103/54; PULSE 68; TEMP 98.1; O2SAT 97
== END 2017-08-02 18:10 | disposition home or self-care (01) | DRG 767 ==
LOC: MC 08:47
PROVIDERS: ADMIT Obstetrics & Gynecology; ATTEND Obstetrics & Gynecology